=== PATIENT | female | born 1970 | race Caucasian/White ===

== ENCOUNTER 2016-07-21 23:41 | Emergency (ER) | payer OTHER ==
[2016-07-22 00:07] VITALS: BP 119/63; PULSE 81; TEMP 97.9; BMI 11.1
[2016-07-22] MEDS ORDERED: METOCLOPRAMIDE 10 MG/2 ML VIAL IM ONE (00:16)
[2016-07-22] MEDS ORDERED: KETOROLAC TROMETHAMINE 60 MG/2 ML SDV IM ONE (00:16)
--- NOTE | 2016-07-22 00:18 | EDPRACDOC ---
- General Information Chief Complaint: Headache Stated Complaint: MIGRAINE Time Seen by Provider: 07/22/16 00:12 Information Source: Patient Mode Of Arrival: Car Home Medications: Home Medications No Home Medications 07/22/16 Allergies/Adverse Reactions: Allergies Allergy/AdvReac Type Severity Reaction Status Date / Time Penicillins Allergy Severe Hives* Verified 07/22/16 00:12 - History of Present Illness Onset: 6pm HPI: PT COMPLAINS OF "MIGRAINE" HEADACHE, LEFT SIDED, SENSITIVE TO LIGHT, ASSOCIATED WITH NAUSEA, NO VOMITING, PT HAS HX OF SAME, TYPICAL SYMPTOMS FOR HER, NO MEDS TAKEN. Location: Reports: Parietal Pain Quality: Reports: Severe, Constant, Throbbing, Like Previous Headaches Modifying Factors: improves with: Exposure to light Relevant History of: Reports: Known Headache disorder Associated Signs and Symptoms: Reports: Occasional Headache, Nausea/Vomiting. Denies: Confusion, Fatigue, Facial Pain, Fever/Chills, Flushing, Loss of Consciousness, Nasal Congestion, Nasal Drainage, Numbness in Legs/Feet, Rash, Seizures, Sinus Infection, Stiff Neck, Vision Changes, Weakness ED Past Medical History - History Reviewed Yes Nurses notes reviewed and agree except as marked - Patient Medical History Neurological History: Reports: Migraine Psychological History: Denies: Depression - Social Medical History Smoking Status: Never smoker ETOH: None Substance Abuse: None EDM Review of Systems - Review of Systems Constitutional: negative: Chills, Fever Eyes: Light Sensitive. negative: Blurred Vision, Double Vision Ears: negative: Drainage Throat: negative: Pain Nose: negative: Congestion, Discharge Respiratory: negative: Cough, Shortness of Breath, Wheezing Cardiovascular: negative: Chest Pain, Palpitations Gastrointestinal: negative: Diarrhea, Nausea, Pain, Vomiting Genitourinary: negative: Dysuria, Frequency Neurological: Headache. negative: Dizziness, Numbness, Weakness Musculoskeletal: No Symptoms Reported Integumentary: No Symptoms Reported - Physical Exam Constitutional: Alert (Awake), No apparent distress Oriented to: Time, Person, Place Last recorded Vital Signs: Last Vital Signs Temp 97.9 F 07/22/16 00:02 Pulse 81 07/22/16 00:02 Resp 20 07/22/16 00:02 BP 119/63 07/22/16 00:02 Pulse Ox 99 07/22/16 00:02 Oxygen Pulse Oxygen Saturation 99 O2 Device Oxygen Flow Rate Fraction of Inspired Oxygen ( FIO2) - HEENT Head: Normal ( normocephalic) Eye Exam: Normal (PERRL, EOMI, Sclera white) Oropharynx: Normal (Pharynx:Moist without exudate,Gums-no swelling) Tympanic Membrane: Normal ENT EAC: Normal TMJ: Normal Nose: No Symptoms Reported (septum midline) Neck: Normal (FROM, trachea at midline) - Respiratory/Cardiovascular Respiratory: Normal - CTA (BBS clear to auscultation without adventitious sounds ) Cardiovascular: Normal (RRR without murmur, gallop or rub) - GI Auscultation: Normal (NABS) Palpation: Normal (Soft,No rebound or guarding, non distended) Tenderness: Non tender Ontiveros's Sign: Negative - Musculoskeletal Back: Normal (Non-Tender) Extremities: Normal (Normal tone, Pulses 2+ No cyanosis or edema, FROM) - Integumentary Skin: Normal, Warm, Dry Lymphatics: Normal (no adenopathy) - Neurologic Memory Impaired: Normal Motor Function: Normal (Normal tone, Pulses 2+ No cyanosis or edema, FROM) Cranial Nerve: Normal (CN II-X11 intact sensation, strength 5/5) Cerebellar: Normal Mood Description: Normal Perception: Normal - Differential Diagnosis Cluster, Migraine - Re-evaluation Re-evaluation 1 Re-evaluation Time: 01:21 (HEADACHE IMPROVED) Decision Time to Discharge: 01:22 - Departure Disposition: Home Condition: Stable Final Diagnosis: Acute headache Instructions: Acute Headache (ED) Education/Counseling Given To: Patient Education/Counseling Given Regarding: Diagnosis, Treatment, Prognosis, Follow Up Referrals: Magdy Sampson MD [Staff Physician] - One Week Forms: Excuse Note Additional Instructions: REST, DRINK PLENTY OF FLUIDS, USE TYLENOL OR MOTRIN NEEDED FOR PAIN RETURN TO THE ED FOR ANY WORSENING SYMPTOMS OR CONCERNS.
== END 2016-07-22 01:32 | disposition home or self-care (01) ==
LOC: ED 23:41
DX: R51 Headache (principal)
CPT/HCPCS: 96372; 99282; J1885; J2765